=== PATIENT | female | born 1980 | race American Indian/Alaskan Native ===

== ENCOUNTER 2016-10-27 10:44 | Inpatient (IN) | payer OTHER ==
--- NOTE | 2016-10-24 14:05 | Anesthesia Consultation ---
Anesthesia Consult and Med Hx Date of service: 10/24/16 - Airway Anesthetic Teeth Evaluation: Good, Crowns (uppr back) ROM Head & Neck: Adequate Mental/Hyoid Distance: Adequate Mallampati Class: Class II Intubation Access Assessment: Probably Good - Pre-Operative Health Status ASA Pre-Surgery Classification: ASA2 Proposed Anesthetic Plan: General Nerve Block: TAP - Central Nervous System Hx Psychiatric Problems: No - Other Systems Hx Alcohol Use: Yes (socially) Hx Cancer: Yes (h/o cervical CA)
[2016-10-24 14:46] LABS: Basophils % (Auto) 0.4 % (0.0-1.8); Eosinophils % (Auto) 0.3 % (0.0-4.3); Hemoglobin 10.4 gm/dl (10.1-14.3); Mean Corpuscular HGB Conc 33 % (30-34); Mean Corpuscular Hemoglobin 27 pg (28-32); Mean Corpuscular Volume 84 fl (79-97); Platelet Count 173 K/mm3 (140-440); Red Blood Count 3.81 M/mm3 (3.65-5.03); Red Cell Distribution Width 15.9 % (13.2-15.2); White Blood Count 2.6 K/mm3 (4.5-11.0)
[~2016-10-27 10:44] MED LIST: LACTATED RINGERS 1,000 ML IV SCH; MARCAINE 0.5% INFILTRATI NR; NACL P/F VIAL (10 ML) INFILTRATI NR; PEPCID IV NR; SUBLIMAZE IV ONE; VERSED IV NR; XYLOCAINE 1% 20 mL INFILTRATI NR; XYLOCAINE MPF 2% ONE; ZEMURON IV ONE
[2016-10-27] MEDS ORDERED: METHYLENE BLUE ONE (10:55)
[2016-10-27] MEDS ORDERED: MARCAINE-EPI/PF 0.25%-1:200,000 INFILTRATI ONE (10:55)
[2016-10-27] MEDS ORDERED: NEOSPORIN GU IR ONE ×2 (10:56→17:00)
--- NOTE | 2016-10-27 11:22 | Short Stay Summary ---
Short Stay Documentation Date of service: 10/27/16 Narrative H&P: Pt is a 36yo BF LMP 10/10/16 presents for surgical evaluation and treatment of cervical [id number]. She desires a Robotic Assisted Total Hysterectomy with ovarian conservation. - History Principal diagnosis: Cervical [id number] H&P: obtained from office Past Medical History: No medical history Past Surgical History: Social history: no significant social history, single - Allergies and Medications Current Medications: Allergies No Known Allergies Allergy (Unverified 10/20/16 13:55) Home Medications Medication Instructions Recorded Confirmed Last Taken Type No Known Home Medications [No 10/20/16 10/20/16 Unknown History Reported Home Medications] Active Medications Bupivacaine HCl (Marcaine 0.5%) 20 ml INFILTRATI PREOP NR Stop: 10/27/16 23:59 Famotidine (Pepcid) 20 mg IV PREOP NR Stop: 10/27/16 23:59 Lactated Ringer's (Lactated Ringers) 1,000 mls @ 100 mls/hr IV DIRECT MAY Lidocaine (Xylocaine 1% 20 Ml) 10 ml INFILTRATI PREOP NR Stop: 10/27/16 23:59 Midazolam HCl (Versed) 2 mg IV PREOP NR Stop: 10/27/16 23:59 Sodium Chloride (Nacl P/F Vial (10 Ml)) 1 ml INFILTRATI PREOP NR Stop: 10/27/16 23:59 - Physical exam General appearance: no acute distress Integumentary: no rash HEENT: Atraumatic Lungs: Clear to auscultation Breasts: deferred Heart: Regular rate Gastrointestinal: normal Female Genitourinary: deferred Rectal Exam: deferred Extremities: No edema Neurological: Normal gait, Normal speech - Brief post op/procedure progress note Date of procedure: 10/27/16 Pre-op diagnosis: Cervical [id number] Post-op diagnosis: same Procedure: Robotic Assisted Total Hysterectomy with Bilateral Salpingectomy Anesthesia: GETA, regional (MAY block) Findings: An 8-10 weeks size uterus with tubes showing evidence of previous tubal ligation. Normal ovaries bilaterally. Surgeon: IVON SAINI Cork Grinder: AMY CAMPUZANO Estimated blood loss: 50-100ml Pathology: list (uterus, cervix and fallopian tubes) Specimen disposition: to lab Condition: stable - Hospital course Hospital course: Unremarkable. Pt tolerated the RATH without complications. By POD #1 she was tolerating a reg diet without nausea or vomiting, ambulating and voiding without difficulty. She was therefore discharged to home on POD #1 in stable condition. - Disposition Condition at discharge: Good Disposition: DC-01 TO HOME OR SELFCARE - Discharge Diagnoses (1) Status post robot-assisted surgical procedure Status: Resolved Short Stay Discharge Plan Activity: no restrictions Diet: regular Wound: open to air, keep clean and dry Follow up with: PRIMARY CAREMD [Primary Care Provider] - 7 Days IVON SAINI MD [Staff Physician] - 14 Days Prescriptions: HYDROcodone/APAP 5-325 [[place] 5-325 mg TAB] 1 each PO Q6HR PRN #30 tablet PRN Reason: Pain, Moderate (4-6) Ibuprofen [Motrin] 800 mg PO Q8HR PRN #30 tablet PRN Reason: Moder Pain Unrelieved By [place]
[2016-10-27] MEDS ORDERED: ANCEF/STERILE WATER 2 GM/20 ML 2 GM/20 ML SYRINGE IV NR (12:00)
[2016-10-27] MEDS ORDERED: NEURONTIN PO NR (12:26)
[2016-10-27] MEDS ORDERED: SUBLIMAZE IV SCH (12:33)
--- NOTE | 2016-10-27 12:34 | Anesthesia Day of Surgery ---
Anesthesia Day of Surgery - Day of Surgery Patient Examined: Yes Patient H&P Reviewed: Yes Patient is NPO: Yes
[2016-10-27] MEDS ORDERED: DILAUDID IV PRN (12:35)
[2016-10-27] MEDS ORDERED: ZOFRAN IV PRN ×2 (12:35→16:18)
[2016-10-27] MEDS ORDERED: MARCAINE-EPI/PF 0.5%-1:200,000 INFILTRATI ONE (12:38)
[2016-10-27] MEDS ORDERED: DECADRON ONE ×2 (12:38→16:19)
[2016-10-27] MEDS ORDERED: DIPRIVAN 10 MG/ML IV ONE (13:25)
[2016-10-27] MEDS ORDERED: DILAUDID ONE ×2 (13:25→16:34)
[2016-10-27] MEDS ORDERED: NEO SYNEPHRINE/NS Syringe(OR USE) IV ONE (15:00)
[2016-10-27] MEDS ORDERED: LACTATED RINGERS 1,000 ML ONE ×3 (15:06→17:52)
[2016-10-27] MEDS ORDERED: BLOXIVERZ ONE (16:16)
[2016-10-27] MEDS ORDERED: ROBINUL ONE (16:16)
[2016-10-27] MEDS ORDERED: PHENERGAN PR PRN (16:18)
[2016-10-27] MEDS ORDERED: NARCAN 0.4 MG/1 ML IV PRN (16:18)
[2016-10-27] MEDS ORDERED: TYLENOL PO PRN (16:18)
[2016-10-27] MEDS ORDERED: MILK OF MAGNESIA PO PRN (16:18)
[2016-10-27] MEDS ORDERED: NORCO 5/325 PO PRN (16:18)
[2016-10-27] MEDS ORDERED: PERCOCET 5/325 PO PRN (16:18)
[2016-10-27] MEDS ORDERED: ZOFRAN ONE (16:19)
--- NOTE | 2016-10-27 16:42 | Operative Report ---
Operative Report Operative Report: Date of procedure: 10/27/2016 Pre-operative diagnosis: Cervical carcinoma in situ Post-operative diagnosis: Same Procedure name(s): 1. Robotic-assisted total hysterectomy 2. Bilateral salpingectomy Surgeon: Jason Shah MD Donor Services Specialist: Taz Cain SA Anesthesia: Yosef block followed by general endotracheal intubation by Dr. Hess EBL: 100 mL's Findings: An 8-10 week size uterus with tubes showed evidence of previous tubal ligation bilaterally. Normal ovaries bilaterally. Procedure: After the patient's first correctly identified she was prepped and draped in the usual sterile fashion and placed in the dorsolithotomy position. The bladder was first catheterized using Torre catheter and the speculum was placed in the vagina and the anterior lip of the cervix was grasped using a single-tooth tenaculum, and the medium Vesicare cup was placed. The tenaculum and speculum was then removed from the vagina and attention was then turned to the abdomen. The skin knife was used to make a small incision approximately 5 cm above the umbilicus through which a 12 mm trocar was placed under direct visualization. After adequate amount of abdominal insufflation visualization of the pelvic organs found the uterus to be enlarged and the tubes showed evidence of previous tubal ligation bilaterally and both ovaries were normal bilaterally. A right lateral incision was made through which a 5mm trocar was placed under direct visualization. A right and left paramedian incision was made through which the 8 mm trochars were placed under direct visualization. The patient was then placed in steep Trendelenburg positioning and the robot was docked on the patient's left side. After all the robotic ports were connected and adequate functioning of the robotic arms were tested the surgeon then proceeded to the console to begin the hysterectomy. First the left round ligament was grasped, cauterized and cut, the left utero- ovarian ligaments were grasped, cauterized and cut, and the left fallopian tube also grasped, cauterized and cut along the mesosalpinx, thus freeing the left ovary from the left uterine sidewall. The same procedure was performed on the right. The right round ligament was grasped, cauterized and cut, the right utero-ovarian ligaments were grasped, cauterized and cut, and the right fallopian tube also grasped, cauterized and cut along the mesosalpinx, thus freeing the right ovary from the right uterine sidewall. The bladder flap was taken down anteriorly and the uterine vessels were grasped, cauterized and cut bilaterally. The cardinal ligaments were sequentially grasped, cauterized and cut down to the level of the uterosacral ligaments. At this time the posterior colpotomy was performed over the Vcare cup, and the cervix was circumscribed beginning posteriorly and meeting anteriorly until the cervix was freed. The cervix and uterus was then removed through the vagina and sent to pathology. The vaginal cuff was then closed using 2-0 Vloc suture in a running fashion. Irrigation was then performed and after good hemostasis was achieved the procedure was considered complete. The Tisseel sealant was then sprayed across the vaginal cuff site, and excellent hemostasis was assured. All instruments were then removed from the abdominal cavity. And each incision was closed using 0 Vicryl suture in a eokxen-ha-apsho configuration on the fascia followed by 4-0 Monocryl suture in a subcuticular fashion on the skin. Each incision was also infiltrated using 0.5% Marcaine solution. The vaginal pack was removed. The patient tolerated the procedure well and was transported to the recovery room in stable condition.
--- NOTE | 2016-10-27 16:56 | Post Anesthesia Evaluation ---
- Post Anesthesia Evaluation Patient Participated: Yes Airway Patent: Yes Stable Respiratory Function: Yes Nausea/Vomiting: No Temp > 96.8F: Yes Pain Manageable: Yes Adequeate Hydration: Yes Anesthesia Complications: No Block Receding Appropriately: Not Applicable Patient on Ventilator: No
[2016-10-27] MEDS ORDERED: D5LR 1,000 ML IV SCH (17:00)
[2016-10-27] MEDS ORDERED: NACL 0.9% IR ONE ×2 (17:01)
[2016-10-27] MEDS ORDERED: ANCEF/NS 1 GM/50 ML 1 GM/50 ML BAG IV SCH (18:00)
[2016-10-27] MEDS: TORADOL IV SCH (23:00)
[2016-10-28] MEDS ORDERED: ANCEF/NS 1 GM/50 ML 1 GM/50 ML BAG IV SCH
[2016-10-28] MEDS: COLACE PO SCH ×2 (00:07→10:12)
[2016-10-28] MEDS: TORADOL IV SCH ×2 (01:56→08:16)
[2016-10-28 06:34] LABS: Hematocrit 31.9 % (30.3-42.9)
--- NOTE | 2016-10-28 08:51 | Progress Note ---
Assessment and Plan - Patient Problems (1) Status post robot-assisted surgical procedure Onset Date: 10/28/16 Current Visit: Yes Status: Resolved Plan to address problem: A: S/P RATH - POD #1 Doing well P: May go home this afternoon after lunch Subjective - Subjective Date of service: 10/28/16 Principal diagnosis: s/p RATH - POD #1 Interval history: Pt is feeling well without complaints. She is tolerating a liquid diet without nausea or vomiting, ambulating and voiding without difficulty. Patient reports: appetite normal, voiding normally, pain well controlled, flatus , ambulating normally Objective - Vital Signs Latest vital signs: Vital Signs Temp Pulse Resp BP Pulse Ox 10/28/16 04:00 98.6 F 71 16 135/82 10/28/16 00:00 98.6 F 70 16 134/89 10/27/16 19:30 98.6 F 70 16 145/93 10/27/16 18:38 97.7 F 84 16 160/95 10/27/16 18:15 97.7 F 85 18 160/95 10/27/16 17:45 86 18 155/98 95 10/27/16 17:30 82 18 147/96 96 10/27/16 17:15 85 20 158/99 97 10/27/16 17:00 73 18 144/91 100 10/27/16 16:55 75 20 139/91 100 10/27/16 16:50 80 16 128/66 100 10/27/16 16:45 97.9 F 85 14 126/93 99 10/27/16 13:05 107 H 14 152/82 99 10/27/16 13:00 95 H 13 139/83 100 10/27/16 12:55 86 12 129/85 100 10/27/16 12:50 85 17 135/89 100 10/27/16 11:26 98.8 F 84 16 136/89 100 10/27/16 11:00 98.8 F 84 16 136/89 100 Intake and Output 10/27/16 10/28/16 10/28/16 22:59 06:59 14:59 Intake Total 1400 1245 Output Total 1075 1500 Balance 325 -255 Intake: IV 1400 925 ANCEF/NS 1 GM/50 ML 1 gm 50 In 50 ml @ 100 mls/hr IV Q8H MAY Rx#:[id number] D5lr 1,000 ml @ 125 mls/ 625 hr IV DIRECT ON LICENSE OF [facility] Rx#: [id number] Lactated Ringers 1,000 ml 500 250 As .ROUTE .[facility] ONE Rx#:[id number] Oral 120 Intake, Free Water 200 Output: Urine 1075 1500 Indwelling Catheter 600 1500 Other: Total, Intake Amount 120 Total, Output Amount 600 600 - Exam Breasts: Present: deferred Cardiovascular: Present: Regular rate Lungs: Present: Clear to auscultation Abdomen: Present: normal appearance, soft Extremities: Present: normal Incision: Present: normal, dry, intact - Labs Labs: Abnormal lab results 10/27/16 10/28/16 10/28/16 Range/Units 16:16 06:03 06:03 Hgb 10.0 L (10.1-14.3) gm/dl Creatinine 0.5 L 0.5 L (0.7-1.2) mg/dL Laboratory Tests 10/24/16 10/24/16 10/24/16 13:40 13:40 13:40 WBC 2.6 L RBC 3.81 Hgb 10.4 Hct 32.0 MCV 84 MCH 27 L MCHC 33 RDW 15.9 H Plt Count 173 Lymph % (Auto) 29.9 [place] % (Auto) 9.1 H Eos % (Auto) 0.3 Baso % (Auto) 0.4 Lymph # 0.8 L [place] # 0.2 Eos # 0.0 Baso # 0.0 Seg Neutrophils % 60.3 Seg Neutrophils # 1.6 L Creatinine Estimated GFR HCG, Qual Negative Blood Type A POSITIVE Antibody Screen TNR FABI Antibody Screen Negative 10/27/16 10/28/16 10/28/16 16:16 06:03 06:03 WBC RBC Hgb 10.0 L Hct 31.9 MCV MCH MCHC RDW Plt Count Lymph % (Auto) [place] % (Auto) Eos % (Auto) Baso % (Auto) Lymph # [place] # Eos # Baso # Seg Neutrophils % Seg Neutrophils # Creatinine 0.5 L 0.5 L Estimated GFR > 60 > 60 HCG, Qual Blood Type Antibody Screen FABI Antibody Screen
[2016-10-28 18:40] VITALS: BP 122/73
== END 2016-10-28 14:15 | disposition home or self-care (01) | DRG 830 ==
LOC: OR 10:44 → OB 16:18
PROVIDERS: ADMIT Obstetrics & Gynecology; ATTEND Obstetrics & Gynecology
PROC: 0UT94ZZ Resection of Uterus, Percutaneous Endoscopic Approach (ICD-10-PCS; principal; 2016-10-27)
PROC: 0UTC4ZZ Resection of Cervix, Percutaneous Endoscopic Approach (ICD-10-PCS; 2016-10-27)
PROC: 0UT74ZZ Resection of Bilateral Fallopian Tubes, Percutaneous Endoscopic Approach (ICD-10-PCS; 2016-10-27)
PROC: 8E0W4CZ Robotic Assisted Procedure of Trunk Region, Percutaneous Endoscopic Approach (ICD-10-PCS; 2016-10-27)
DX: D09.8 Carcinoma in situ of other specified sites (principal)
CPT/HCPCS: 36415; 64450; 82565; 84703; 85014; 85018; 85025; 86850; 86900; 86901; 88307; A4217; C9250; J0690; J1100; J1170; J1885; J2250; J2370; J2405; J2704; J2710; J3010; J7120; J7121; Q9968